=== PATIENT | female | born 1970 | race Caucasian/White ===

== ENCOUNTER → 2021-03-18 | Day surgery (SDC) | payer BC ==
[~2021-03-18] VITALS: Ht 160 cm; Wt 72.0 kg
[~2021-03-18] MED LIST: ALBU2.5V8 INH; ASPI-630 PO; ASPI325T8 PO; BUTA-14 PO; CYCL10TA2 PO; DOXY100T PO; FLUT16SP2 NS; GABA300C18 PO; INSU100V8 SQ; LIDOCAINE 1%/EPI 1:100,000 20 ML VIAL. INJ ONE; LIRA0.6P2 SQ; LISI10TA16 PO; MELO7.5T29 PO; PSEU120T10 PO; RANI-376 PO; RANI75TA89 PO; SIMV40TA18 PO; TIZA4TAB2 PO; UBID1CAP41 PO
[2021-03-18 11:09] VITALS: BP 125/78
--- NOTE | 2021-03-18 13:20 | PDOC4 ---
Operative Note Operative Note Date: March 182020 at 1319 Preoperative diagnosis: Mass supraclavicular right side Postoperative diagnosis: Same Procedure: Excision of mass 2 x 2 cm with 1 cm margin Surgeon: Elijah Specimen: Right supraclavicular mass Dictation: Patient is a 50-year-old female with complaints of a painful mass in her right supraclavicular area is approximately 2 cm in diameter. Procedure of excision was explained to the patient detail risk benefits were also discussed including bleeding infection alternatives to this procedure also discussed with patient who seemed to understand and gave both verbal and written consent to have the procedure performed. Patient was taken to the minors room placed in the supine position. Area around the mass was prepped with ChloraPrep and injected with 1% lidocaine with epinephrine. Once this anesthetized and incision was made with 15 blade scalpel is carried down through subcutaneous tissues the mass was excised completely appeared to be a sebaceous cyst wound was then closed with a single layer 4-0 subcuticular Monocryl Mastisol Steri- Strips and island dressing were applied. Patient tolerated procedure well was discharged home in stable condition all sponge instrument needle counts listed as correct estimated blood loss 5 mL DRAKE TAVAREZ MD Mar 18, 2021 13:20
--- NOTE | 2021-03-18 13:22 | DISCH ---
DISCHARGE INSTRUCTIONS Condition on Discharge Condition on Discharge: Stable Activity After Discharge Activity Instructions for Disc: Resume previous activity, Avoid exertion Diet after Discharge Diet after Discharge: Regular Wound Incision Care Other wound/incision instructi: May shower in 24 hours Contacting the after DC Call your doctor for: If your condition worsens Follow-Up Follow up with: Dr. Tavarez in 2 weeks DRAKE TAVAREZ MD Mar 18, 2021 13:22
--- NOTE | 2021-03-19 17:09 | PATHOLOGY ---
[facility] Accession Number: [id number] . 01 Material submitted: . clavicle - RIGHT CLAVICLE CYST. Modifiers: right . 01 Clinical history: . INFECTED CYST RIGHT CLAVICLE EXC SEBACEOUS CYST . 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 . (JP:mm; 03/19/2021) [facility] 03/19/2021 1530 Local . 02 Comment: There is no evidence of malignancy. . (JPM:mml; 03/19/2021) . 02 Electronically signed: . Segundo Corrigan MD, Pathologist NPI- [id number] . 01 Gross description: . The specimen is received in formalin, labeled "Jayda Lennon, #1 right clavicle cyst" and consists of multiple conrad-white to pink and fatty soft irregular tissues aggregating 2.1 x 1.7 x 0.3 cm which are filtered and submitted in toto in A1. ([place]; 03/18/2021) DKA/DKA 03/18/2021 1647 Local . 02 Pathologist provided ICD-10: L72.0 . 02 CPT . 481501 Specimen Comment: A courtesy copy of this report has been sent to [phone], [phone] Specimen Comment: [id number] Specimen Comment: Report sent to / DR VILLAGOMEZ Performed at: 01 [facility] [address], [place], [place] [id number] MD Florentin Peña MD Phone: [phone] Performed at: [facility] [address] [place], [place] [id number] MD Segundo Corrigan MD Phone: [phone]
== END ==
LOC: SURG 10:50
PROVIDERS: ATTEND Surgery
DX: R22.1 Localized swelling, mass and lump, neck (principal); L72.0 Epidermal cyst; E78.00 Pure hypercholesterolemia, unspecified; J45.909 Unspecified asthma, uncomplicated; Z87.01 Personal history of pneumonia (recurrent); Z86.73 Personal history of transient ischemic attack (TIA), and cerebral infarction without residual deficits; Z87.440 Personal history of urinary (tract) infections; Z79.899 Other long term (current) drug therapy; Z90.49 Acquired absence of other specified parts of digestive tract; Z98.51 Tubal ligation status; Z98.890 Other specified postprocedural states
CPT/HCPCS: 11422; J3490; 88304